=== PATIENT | male | born 1940 | race Caucasian/White ===

== ENCOUNTER 2022-10-15 20:43 | Emergency (ER) | payer MEDICARE ==
[~2022-10-15] VITALS: Ht 175.3 cm; Wt 70.3 kg
--- NOTE | 2022-10-15 20:57 | NUR ---
PT BIBRA FROM HOME FOR C/O GENERALIZED DIFFUSE ABD PAIN AND NASUEA. PT HAS HX OF HTN AND ANXIETY, DAUGHTER GAVE UNKNOWN AMOUNT OF SEROQUEL PRIOR TO EMS ARRIVAL. AT BASELINE PT ORIENTED X4, BUT IS LETHARGIC AT TRIAGE AND IS UNABLE TO PARTICIPATE TO TRIAGE QUESTIONS STATING "MY MOUTH IS DRY AND I WANT TO SLEEP". V/S STABLE AT TRIAGE. DAUGHTER
[2022-10-15] MEDS ORDERED: ONDANSETRON HCL/PF 4 MG/2 ML VIAL ONE (21:21)
[2022-10-15] MEDS ORDERED: IV NS 0.9% 1,000 ML BAG IV ONE (21:30)
[2022-10-15] MEDS ORDERED: ONDANSETRON HCL/PF 4 MG/2 ML VIAL IVP ONE (21:30)
[2022-10-15 21:37] LABS: BASOPHILS % (AUTO) 0.1 % (0.0-2.0); EOSINOPHILS % (AUTO) 0.2 % (0.0-6.0); HEMATOCRIT 39 % (39-51); HEMOGLOBIN 12.4 g/dL (13.5-17.5); LYMPHOCYTES # (AUTO) 1.1 K/uL (0.8-4.8); LYMPHOCYTES % (AUTO) 12.8 % (20.0-44.0); MEAN CORPUSCULAR HGB CONC 32 g/dl (31.0-36.0); MEAN CORPUSCULAR VOLUME 85 fL (80-96); MONOCYTES # (AUTO) 0.5 K/uL (0.1-1.30); MONOCYTES % (AUTO) 5.5 % (2.0-12.0); NEUTROPHILS % (AUTO) 81.4 % (43.0-81.0); PLATELET COUNT (AUTO) 180 K/uL (150-450); RED BLOOD CELL COUNT(AUTO) 4.61 MIL/uL (4.5-6.0); WHITE BLOOD COUNT (AUTO) 8.6 K/uL (4.3-11.0)
--- NOTE | 2022-10-15 21:40 | NUR ---
TAKEN TO CT VIA GERARDO
[2022-10-15 22:21] LABS: SERUM AMMONIA 13 umol/L (11-32)
[2022-10-15 22:26] LABS: ALANINE AMINOTRANSFERASE 26 U/L (12-78); ALBUMIN 3.5 g/dL (3.4-5.0); ALCOHOL, BLOOD < 3 mg/dL (0-0); ALKALINE PHOSPHATASE 62 U/L (46-116); ASPARTATE AMINOTRANSFERASE 19 U/L (15-37); BILIRUBIN,DIRECT 0.1 mg/dL (0.0-0.2); BILIRUBIN,TOTAL 0.4 mg/dL (0.2-1.0); CALCIUM, SERUM 8.7 mg/dL (8.5-10.1); CARBON DIOXIDE 27 mmol/L (21-32); CHLORIDE 107 mmol/L (98-107); GLUCOSE 144 mg/dL (74-106); POTASSIUM 3.4 mmol/L (3.5-5.1); SODIUM SERUM 142 mmol/L (136-145); TOTAL PROTEIN, SERUM 6.6 g/dL (6.4-8.2); UREA NITROGEN, BLOOD 16 mg/dL (7-18)
[2022-10-15 22:51] LABS: ACETAMINOPHEN < 10 ug/ml (10-30)
[2022-10-15 23:10] LABS: BILIRUBIN,URINE NEGATIVE (NEGATIVE); COLOR,URINE YELLOW (YELLOW); LEUKOCYTE ESTERASE ,URINE NEGATIVE (NEGATIVE); NITRITE, URINE NEGATIVE (NEGATIVE); PROTEIN,URINE NEGATIVE (NEGATIVE); UGLUCOSE NEGATIVE (NEGATIVE); UROBILINOGEN,URINE 0.2 EU/dL (0.2)
[2022-10-15 23:24] LABS: BACTERIA,URINE Rare /HPF (None Seen); RBC,URINE 0-2 /HPF (0-2); SQUAMOUS EPITHELIAL CELL,UR Few /HPF (None Seen); WBC,URINE 0-2 /HPF (0-3)
--- NOTE | 2022-10-16 00:46 | NUR ---
IV removed. Catheter intact and site benign. Pressure and 4x4 applied to site. No bleeding noted.Patient discharged to home in stable condition. Written and verbal after care instructions given. Patient verbalizes understanding of instruction.
[2022-10-16 00:47] VITALS: BP 142/70
== END 2022-10-16 00:47 | disposition home or self-care (01) ==
LOC: ER 20:49
DX: R10.9 Unspecified abdominal pain (principal); F12.929 Cannabis use, unspecified with intoxication, unspecified; R11.0 Nausea; R41.82 Altered mental status, unspecified; I10 Essential (primary) hypertension; F41.9 Anxiety disorder, unspecified
CPT/HCPCS: 99285; 96374; 96361; 93005; 71045; 70450; 74176; 82140; 85025; 80048; 80076; 81001; 36415; 84484 ×2; 85730; 80143; 80320; 80307; J2405; J7030; G0480

== ENCOUNTER 2025-07-02 10:28 | Emergency (ER) | payer BC ==
[~2025-07-02] VITALS: Ht 177.8 cm; Wt 79.8 kg
[2025-07-02] MEDS: IV NS 0.9% 500 ML BAG IV ONE (11:05)
[2025-07-02 11:12] LABS: PLATELET COUNT (AUTO) 134 K/uL (150-450); RED BLOOD CELL COUNT(AUTO) 5.00 MIL/uL (4.5-6.0); RED CELL DISTRIBUTION WIDTH 14.1 % (11.5-15.0); WHITE BLOOD COUNT (AUTO) 15.2 K/uL (4.3-11.0)
[2025-07-02 11:17] LABS: CALCIUM, SERUM 8.6 mg/dL (8.5-10.1); CREATININE 1.3 mg/dL (0.6-1.3); SODIUM SERUM 136 mmol/L (136-145); UREA NITROGEN, BLOOD 21 mg/dL (7-18)
[2025-07-02 11:25] LABS: LACTIC ACID 1.4 mmol/L (0.4-2.0)
[2025-07-02] MEDS: CEFEPIME 1 GM in IV D5W 50 ML IV ONE (11:35)
[2025-07-02] MEDS: IV NS 0.9% 1,000 ML BAG IV ONE (11:35)
[2025-07-02] MEDS ORDERED: POTASSIUM CHLORIDE 20 MEQ TAB.PRT.SR PO ONE (13:28)
[2025-07-02] MEDS: POTASSIUM CHLORIDE 20 MEQ TAB.PRT.SR PO ONE (13:37)
[2025-07-02 14:20] LABS: APPEARANCE,URINE SLIGHTLY CLOUDY (CLEAR); BLOOD, URINE 3+ Ery/uL (NEGATIVE); LEUKOCYTE ESTERASE ,URINE 3+ (NEGATIVE); NITRITE, URINE POSITIVE (NEGATIVE); UGLUCOSE TRACE mg/dL (NEGATIVE)
[2025-07-02 14:28] LABS: ADD URINE CULTURE YES
[2025-07-02 14:29] LABS: SQUAMOUS EPITHELIAL CELL,UR 0-2 /HPF (None Seen)
[2025-07-02 17:59] VITALS: TEMP 99.4
[2025-07-02 20:05] VITALS: BP 146/75; O2SAT 98
== END 2025-07-02 20:12 | disposition short-term general hospital (02) ==
LOC: ER 10:30
DX: N39.0 Urinary tract infection, site not specified (principal); E87.6 Hypokalemia; I10 Essential (primary) hypertension; F03.90 Unspecified dementia, unspecified severity, without behavioral disturbance, psychotic disturbance, mood disturbance, and anxiety; F41.9 Anxiety disorder, unspecified
CPT/HCPCS: 99285; 74176; 96365; 71045; 96361; 93005; 85025; 80048; 87040 ×2; 87086; 83605; 81001; 36415; J7060; J7030; J7040; J0692; 87186-TC